=== PATIENT | female | born 1980 | race Caucasian/White ===

== ENCOUNTER → 2021-09-12 10:21 | Outpatient (BNVA) | payer OTHER, SELFPAY | PROVIDERS: PCP Nurse Practitioner Family; Visit Provider Hospitalist | DX: J47.9 Bronchiectasis, uncomplicated (principal); R91.1 Solitary pulmonary nodule; Q34.8 Other specified congenital malformations of respiratory system; F17.200 Nicotine dependence, unspecified, uncomplicated | CPT/HCPCS: 90686; 99202 ==

== ENCOUNTER 2021-09-27 06:29 | Day surgery (SDC) | payer OTHER, SELFPAY ==
[2021-09-18 14:16] VITALS: BMI 29.7
--- NOTE | 2021-09-26 10:56 | P.CONAN_ITS ---
Documented by User: Keli Johnson NP 09/26/21 10:57 HPI - Anesthesia Eval Consult details Narrative: 40yo F for Bronchoscopy Fiberoptic PMFSH Active Problems Active Problems: All Active Problems (Updated 09/18/21 @ 14:01 by Keira Castañeda RN) Tobacco dependence (Acute) Pulmonary nodule (Acute) Bronchiectasis (Acute) Primary ciliary dyskinesia (Acute) Past Medical History Medical History ADD (attention deficit disorder) Anxiety and depression Bronchiectasis IBS (irritable bowel syndrome) Migraines Primary ciliary dyskinesia Pulmonary nodule Sciatica Tobacco dependence Surgical History Surgical History History of bronchoscopy History of tubal ligation Hx of colonoscopy Social History Social History Are you a primary personal care attendant to a significant other at home: No Do you presently have visiting nurse or other home services: No Patient Tobacco Use Status: Current everyday Tobacco user Tobacco use type: Cigarette Cigarette Packs Per Day: 1 Cigarettes Per Day: 20.0 Years Smoked: 5 Smoked in Last 30 Days: Yes Patient Interested in Nicotine Replacement: No Use of substances other than those prescribed or required for medical reasons: Yes Substance Use Frequency: Occasionally Have you been hit, kicked, punched, or otherwise hurt by someone within the past year? If so, by whom?: No Are you DNR?: No Advance Directives: No Advance Directives Information Provided: No Advance Directives on File: No Recently lost weight without trying: No Eating poorly because of decreased appetite: No Nutrition Risks: No Nutritional Risk Patient : No Meds Allergies Allergy/AdvReac Type Severity Reaction Status Date / Time Sulfa (Sulfonamide Allergy Severe Hives/Swell Verified 09/18/21 13:51 Antibiotics) ing amoxicillin Allergy Hives, Verified 09/18/21 14:02 Swelling levofloxacin [From Levaquin] Allergy Rash Verified 09/18/21 14:02 nitrofurantoin Allergy Rash Verified 09/18/21 14:02 [From Macrobid] Home Medications Medication Instructions Recorded Confirmed Last Taken Type albuterol sulfate 90 mcg/actuation 0 mcg INHALATION 09/12/21 Unknown History aerosol inhaler (ProAir HFA) bupropion HCl 150 mg tablet,12 hr 150 mg PO DAILY 09/12/21 09/18/21 Unknown History sustained-release dextroamphetamine-amphetamine ER cap PO 09/12/21 Unknown History 20 mg 24hr capsule,extend release (Adderall XR) lamotrigine 200 mg tablet 200 mg PO BID 09/12/21 09/18/21 Unknown History lorazepam 1 mg tablet 1 mg PO BID PRN 09/12/21 09/18/21 Unknown History rizatriptan 10 mg tablet 10 mg PO BEDTIME 09/12/21 09/18/21 Unknown History tranexamic acid 650 mg tablet 1,300 mg PO TID 09/12/21 09/18/21 Unknown History zolpidem 10 mg tablet 10 mg PO BEDTIME PRN 09/12/21 09/18/21 Unknown History Exam Exam Date and Time: September 26, 2021 1056 Height,Weight and Vital Signs: Height 5 ft 4 in Weight 78.471 kg Assessment and Plan Assessment Anesthesia Assessment: Chart Reviewed Documented by User: Paty Soria MD 09/27/21 07:50 [facility] Past Medical History Medical History ADD (attention deficit disorder) Anxiety and depression Bronchiectasis IBS (irritable bowel syndrome) Migraines Primary ciliary dyskinesia Pulmonary nodule Sciatica Tobacco dependence Surgical History Surgical History History of bronchoscopy History of tubal ligation Hx of colonoscopy History of Problems with Anesthesia: No Social History Social History Are you a primary personal care attendant to a significant other at home: No Do you presently have visiting nurse or other home services: No Patient Tobacco Use Status: Current everyday Tobacco user Tobacco use type: Cigarette Cigarette Packs Per Day: 1 Cigarettes Per Day: 20.0 Years Smoked: 5 Smoked in Last 30 Days: Yes Patient Interested in Nicotine Replacement: No Use of substances other than those prescribed or required for medical reasons: Yes Substance Use Frequency: Occasionally Have you been hit, kicked, punched, or otherwise hurt by someone within the past year? If so, by whom?: No Are you DNR?: No Advance Directives: No Advance Directives Information Provided: No Advance Directives on File: No Recently lost weight without trying: No Eating poorly because of decreased appetite: No Nutrition Risks: No Nutritional Risk Patient : No Meds Allergies Allergy/AdvReac Type Severity Reaction Status Date / Time Sulfa (Sulfonamide Allergy Severe Hives/Swell Verified 09/18/21 13:51 Antibiotics) ing amoxicillin Allergy Hives, Verified 09/18/21 14:02 Swelling levofloxacin [From Levaquin] Allergy Rash Verified 09/18/21 14:02 nitrofurantoin Allergy Rash Verified 09/18/21 14:02 [From Macrobid] Home Medications Medication Instructions Recorded Confirmed Last Taken Type albuterol sulfate 90 mcg/actuation 0 mcg INHALATION 09/12/21 Unknown History aerosol inhaler (ProAir HFA) bupropion HCl 150 mg tablet,12 hr 150 mg PO DAILY 09/12/21 09/18/21 Unknown History sustained-release dextroamphetamine-amphetamine ER cap PO 09/12/21 Unknown History 20 mg 24hr capsule,extend release (Adderall XR) lamotrigine 200 mg tablet 200 mg PO BID 09/12/21 09/18/21 Unknown History lorazepam 1 mg tablet 1 mg PO BID PRN 09/12/21 09/18/21 Unknown History rizatriptan 10 mg tablet 10 mg PO BEDTIME 09/12/21 09/18/21 Unknown History tranexamic acid 650 mg tablet 1,300 mg PO TID 09/12/21 09/18/21 Unknown History zolpidem 10 mg tablet 10 mg PO BEDTIME PRN 09/12/21 09/18/21 Unknown History Exam Airway Mallampati Class: II TM Dist: >3cm Neck ROM: Full Loose/Missing/Broken Teeth: No Heart: RRR Lungs: CTA Assessment and Plan Assessment Anesthesia Assessment: Anesthesia Plan Discussed Final Anesthetic Review History of Problems with Anesthesia: No NPO: Yes ASA Class: II Final Preanesthetic Review: Meds/Allgs Chart Reviewed, Consent Obtained/Reviewed and Anes Risks/Benef Reviewed Patient Risk: Low Procedure Risk: Intermediate Anesthetic Plan Anesthetic Plan: GA Disposition: Standard PACU
[2021-09-27 07:04] VITALS: BP 109/64; PULSE 87; RESP 16; TEMP 36.3; O2SAT 97
[2021-09-27] MEDS: Lactated Ringers 1,000 ML 100 ML IVCONT (07:05)
--- NOTE | 2021-09-27 08:06 | MHC.SHP ---
Pre-Procedural Eval Section A Date of Service: 09/27/21 The patient is an INPATIENT: No Changes since office visit: Yes Patient answered all questions; No Cold of Flu in the past 2 weeks, No New Medical Problems and No Changes in Medication The History & Physical has been completed within 30 days and I have reviewed it.: Yes Section B Chief Complaint: bronchiectasis Allergies: Allergies Allergy/AdvReac Type Severity Reaction Status Date / Time Sulfa (Sulfonamide Allergy Severe Hives/Swell Verified 09/18/21 13:51 Antibiotics) ing amoxicillin Allergy Hives, Verified 09/18/21 14:02 Swelling levofloxacin [From Levaquin] Allergy Rash Verified 09/18/21 14:02 nitrofurantoin Allergy Rash Verified 09/18/21 14:02 [From Macrobid] Plan I have reviewed the history and physical and performed a pertinent physical examination on my patient. No changes have occurred unless specified.
[2021-09-27 08:49] VITALS: BP 116/69; PULSE 105; RESP 16; TEMP 36.4; O2SAT 100
[2021-09-27 08:54] VITALS: BP 107/69; PULSE 92; RESP 16; O2SAT 100
[2021-09-27 08:59] VITALS: BP 109/70; PULSE 87; RESP 16; O2SAT 100
[2021-09-27 09:04] VITALS: BP 115/73; PULSE 87; RESP 16; O2SAT 100
[2021-09-27 09:19] VITALS: BP 114/75; PULSE 86; RESP 16; TEMP 36.4; O2SAT 100
--- NOTE | 2021-09-27 10:40 | PM.OP ---
Brief Operative Note Date of Service: 09/27/21 Pre-op diagnosis: bronchiectasis Post-op diagnosis: other (Rul polypoid lesions ) Procedure: bronchoscopy Implants: Surgeon: Jude Wiseman MD Anesthesia: GLMA Was an Associate Doctor used for this Procedure?: No Estimated blood loss (mL): 0 Pathology: other (Rul biipsies) Condition: stable Disposition: same day
--- NOTE | 2021-09-27 18:35 | OP_ITS ---
SURGEON: Jude Wiseman MD PREOPERATIVE DIAGNOSIS: Bronchiectasis. POSTOPERATIVE DIAGNOSIS: PROCEDURE PERFORMED: Bronchoscopy with therapeutic cleaning, bilateral lung washings and brushings along with endobronchial biopsy. ESTIMATED BLOOD LOSS: COMPLICATIONS: ANESTHESIA: ASSISTANTS: SPECIMENS: POSTOPERATIVE DIAGNOSES: Bronchiectasis in addition to right upper lobe polypoid lesion. DESCRIPTION OF PROCEDURE: After the patient was adequately sedated, LMA in place, flexible digital bronchoscope was inserted over the LMA to the level of the larynx. The vocal cords appeared to be erythematous. The whole larynx actually was erythematous without any lesions. After instilling additional lidocaine, the bronchoscope was then passed the vocal cords to the level of the trachea. The trachea appeared to be completely patent without any evidence of any malacia or stenosis. No significant secretions in the trachea. After given additional lidocaine, the bronchoscope was then navigated to the entire tracheobronchial tree that was examined up to the subsegmental level. The patient did have moderate to severe mucoid secretions with mucus plugging throughout. The mucus was tenacious and difficult to suction. Using saline flushes, we were able to flush out the plaques out of both the right and the left lung. After clearing all the mucus, the endobronchial mucosa was assessed. The patient did have evidence of diverticula, likely consistent with smoking. In addition to that, she had a small little polypoid lesion in the right upper lobe. Please refer to the pictures in the brief operative summary. They appear to be slightly raised. Using brushings, right lower lobe brushings introduced into the purulent secretions noted in the right lower lobe. Specimens sent for microbiology. Next, bilateral lung washings collected for both cytology and microbiology. Next, using forceps, endobronchial biopsies were collected from the right upper lobe polypoid lesion. Specimen sent on formalin to the pathologist to evaluate. The patient had no significant bleeding at the end of the procedure. Had good hemostasis. No epinephrine required. The bronchoscope was then removed. The total endoscopic time approximately about 50 minutes. The patient tolerated the procedure well. Vital signs were stable throughout the procedure. INTERPRETATION: 1. Successful therapeutic cleaning of the airways, [id number]. 2. Bilateral lung washings. 3. Right lower lobe microscopic brushings 4. Forcep endobronchial biopsy of the right upper lobe lesion. Jude Wiseman MD MR/MODL / [id number] RAMIREZ
== END 2021-09-27 10:20 | disposition home or self-care (01) ==
PROVIDERS: PCP Nurse Practitioner Family; Visit Provider Hospitalist
PROC: 0BJ08ZZ Inspection of Tracheobronchial Tree, Via Natural or Artificial Opening Endoscopic (ICD-10-PCS; CPT 31622; principal; 2021-09-27 08:00)
DX: J47.9 Bronchiectasis, uncomplicated (principal); D14.31 Benign neoplasm of right bronchus and lung; J98.09 Other diseases of bronchus, not elsewhere classified; R91.1 Solitary pulmonary nodule; Q34.8 Other specified congenital malformations of respiratory system; F17.210 Nicotine dependence, cigarettes, uncomplicated; Z88.2 Allergy status to sulfonamides
CPT/HCPCS: 31645; 31625; 31623; 87071; 87102; 87107; 87116; 87205; 88305; 88341; 88342; J0171; J2250; J3010

== ENCOUNTER → 2021-10-04 14:42 | Outpatient (BNVA) | payer OTHER, SELFPAY | PROVIDERS: PCP Nurse Practitioner Family; Visit Provider Hospitalist | DX: J47.9 Bronchiectasis, uncomplicated (principal); R91.1 Solitary pulmonary nodule; Q34.8 Other specified congenital malformations of respiratory system; D49.1 Neoplasm of unspecified behavior of respiratory system; F17.210 Nicotine dependence, cigarettes, uncomplicated | CPT/HCPCS: 99212 ==

== ENCOUNTER → 2021-11-02 11:09 | Outpatient (BNVA) | payer OTHER, SELFPAY | PROVIDERS: PCP Nurse Practitioner Family; Visit Provider Surgery | DX: D21.9 Benign neoplasm of connective and other soft tissue, unspecified (principal); D49.1 Neoplasm of unspecified behavior of respiratory system; R91.1 Solitary pulmonary nodule; Z79.899 Other long term (current) drug therapy; Z87.891 Personal history of nicotine dependence | CPT/HCPCS: 99212 ==

== ENCOUNTER 2023-10-07 10:25 | Outpatient (AMB) | payer OTHER, SELFPAY ==
--- NOTE | 2023-10-07 10:39 | A.OFFVIS_ITS ---
Intake Vital Signs 10/07/23 10:40 Height 5 ft 3 in Weight 180 lb BMI 31.9 Pulse 78 Pulse Source Pulse Oximeter Pulse Oximetry (%) 99 Oxygen Delivery Method Room Air Intake Visit Reasons: pulm nodule Allergies Sulfa (Sulfonamide Antibiotics) Allergy (Severe, Verified 10/07/23 10:42) Hives/Swelling amoxicillin Allergy (Verified 10/07/23 10:42) Hives, Swelling levofloxacin [From Levaquin] Allergy (Verified 10/07/23 10:42) Rash nitrofurantoin [From Macrobid] Allergy (Verified 10/07/23 10:42) Rash HPI HPI Comments History of Present Illness Details The patient is a 42-year-old woman with a known history of chronic upper and lower respiratory infections. Patient was further evaluated in [place] and was given a diagnosis of primary ciliary dyskinesia. At this point I do not have any biopsy results or genetic testing given the diagnosis. The patient does not have any evidence of any dextrocardia. The patient was evaluated at [facility]. There she did undergo a bronchoscopy back in 2013. She had extensive mucus plugging. Her cultures were all negative. Biopsies were consistent with acute on chronic inflammatory changes of the bronchi. In addition to that her cytology was consistent with abundant macrophages. Unfortunate patient is actively smoking. She is trying to cut down. I did review her CT scan of the chest that she had back in 2016 demonstrating some bronchiectatic changes at the bases. In addition to that she did have a pulmonary nodule 3-4 mm in size in the right middle lobe. The patient has not had a repeat CT scan to follow this nodule. The patient has had chest x-rays without any significant disease. At this point based on the patien t's worsening respiratory symptoms and chest congestion the best in to be to repeat her bronchoscopy for both therapeutic and diagnostic purposes. We did talk about the importance of tobacco cessation. The patient is currently working with a psychologist. Therefore hold off on Chantix because of the risk of worsening depression. 10/04/2021 the patient is here for a pulmonary follow-up visit. She recently underwent bronchoscopy. She did undergo therapeutic cleaning. She did have significant purulent secretions bilaterally. Her cultures were positive for both filamentous fungus and also strep viridans. Will treat the strep. His this time. The filamentous fungus is still trying to identify. If indeed this is Aspergillus will treated with voriconazole. The patient also had a small polypoid lesion in the right upper lobe area. 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 at this point this finding is concerning as he may require resection. The patient has not had a formal CT scan to assess the size of this tumor. Depending on the size will discuss further interventions. I have discussed the case already with thoracic surgery. She also has established pulmonary care in [place] in view of her primary ciliary dyskinesia. A since we last spoke the patient quit smoking altogether. This is a very positive gain that she has done. I am hopeful that she can continue with her smoking cessation. The therapeutic bronchoscopy was partially helpful. She did have some discomfort to the left lung. And again she is accumulating mucus again this is partly due to the untreated organisms in her lungs. The patient is also concerned for blood dyscrasias. Apparently her father of a blood dyscrasia after 8 days of being diagnosed. 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 We will further evaluate her CT scan for any abnormal lymph nodes but at this point it is very unlikely. 10/07/2023 the patient is here for a pul monary follow-up visit. The patient overall has been fairly well from a respiratory status. She quit smoking 2 weeks ago which is happy about. Hopefully she continued to state from without decision. She is still coughing still has some chest congestion wheezing at times. [id number] severity. She is also concerned about her immun ological status. The patient has had a abnormal flow cytometry laboratory that he has she had from her supervisor vacuum metalizing. 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 Although her IgG levels are reassuring. She will follow-up with me allergy at this time. She can consider Hematology evaluation as well. We again reviewed her last CT scan of the chest that she had back in September 2022. No evidence of any gross endobronchial disease to suggest any recurrence of the granular tumor of her bronchus. The patient does have small pulmonary nodules. She will need a repeat CT scan to further address the endobronchial lesion and also her pulmonary nodules. The patient also has been having some increasing daytime drowsiness. Her Philmont score is elevated 09/19. Therefore, she should have a sleep study at this time. She has tried multiple medications such as stimulants but still not effective. Therefore, will follow-up with her after her CT scan and sleep study. On examination she does have significant rhonchi. She is willing to start Symbicort at this time. She may need additional therapy she can always call if she has not responded to the Symbicort. [facility] Medical History (Updated 10/07/23 @ 12:36 by Jude Wiseman MD) Has daytime drowsiness Lung tumor Sciatica Migraines IBS (irritable bowel syndrome) Anxiety and depression ADD (attention deficit disorder) Tobacco dependence Pulmonary nodule Bronchiectasis Primary ciliary dyskinesia Surgical History History of tubal ligation Hx of colonoscopy History of bronchoscopy Social History Are you a primary manager care management to a significant other at home: No Do you presently have visiting nurse or other home services: No Patient Tobacco Use Status: Current everyday Tobacco user Tobacco use type: Cigarette Cigarette Packs Per Day: 1 Cigarettes Per Day: 20.0 Years Smoked: 5 Review of Systems Const Reports headache(s) and Denies night sweats ENT Denies change in voice, Reports headache(s), Denies lip swelling, Denies mouth pain, Reports nasal congestion, Reports nasal discharge and Denies tongue swelling Card Denies chest pain and Reports dyspnea on exertion Resp Reports chest congestion, Reports cough and Reports dyspnea on exertion GI Denies abdominal pain Musc Denies no additional complaints Neuro Denies Neuro-related abnormal movements and Reports headache(s) Psych Denies no additional complaints Todd/Lymph Denies easy bleeding and Denies lymphadenopathy Aller/Immun Denies lip swelling and Denies tongue swelling Physical Exam Vital Signs: Last Vital Signs Pulse 78 10/07/23 10:40 Pulse Ox 99 10/07/23 10:40 Oxygen Delivery Method Room Air 10/07/23 10:40 BMI result Body Mass Index 31.9 Const General: alert Neck Neck: Yes normal visual inspection, Yes full ROM and Yes no lymphadenopathy Chest Chest palpation & inspection: normal inspection of the chest Resp Effort & Inspection: prolonged expiratory phase Auscultation: rhonchi and diminished lung sounds Cardio Rate: regular rate Rhythm: regular rhythm Heart sounds: S1 normal heart sound present and S2 normal heart sound present GI Palpation (GI): Soft to palpation and nontender Auscultation: normal bowel sounds Skin General skin exam: rashes and/or lesions noted Assessment & Plan Assessment & Plan (1) Primary ciliary dyskinesia: Code(s): Q34.8 - Other specified congenital malformations of respiratory system (2) Bronchiectasis: Code(s): J47.9 - Bronchiectasis, uncomplicated Qualifiers: Bronchiectasis type: uncomplicated Qualified Code(s): J47.9 - Bronchiectasis, uncomplicated (3) Pulmonary nodule: Code(s): R91.1 - Solitary pulmonary nodule Plan: 3-[address] [place] [address] chest [place] [facility] [place]4) Tobacco dependence: Code(s): F17.200 - Nicotine dependence, unspecified, uncomplicated (5) Lung tumor: Code(s): D49.1 - Neoplasm of unspecified behavior of respiratory system (6) Has daytime drowsiness: Comment: NEREIDA 09/19 Code(s): R40.0 - Somnolence Plan Start Symbicort BID CT chest home PSG Tobacco cessation ALEN as needed F/U 2-3 months Orders: Orders CT chest wo IV con Today D49.1 - Neoplasm of unspecified behavior of respiratory system, R91.1 - Solitary pulmonary nodule RT home sleep study Today R40.0 - Somnolence Medications: New budesonide-formoterol 160-4.5 mcg/actuation (Symbicort) 2 puffs inhalation BID 30 days 10.2 grams 11RF J44.89 - Other specified chronic obstructive pulmonary disease Quality Reporting (2019) Adult ([facility] 138/12/18/68) Smoking risk assessment performed?: Yes Patient Tobacco Use Status: Current everyday Tobacco user Coding Level of Care Code Est Pt Level 4 (95497) Diagnoses Primary ciliary dyskinesia Q34.8 Bronchiectasis without complication J47.9 Bronchiectasis type: uncomplicated Pulmonary nodule R91.1 Tobacco dependence F17.200 Lung tumor D49.1 Has daytime drowsiness R40.0 Time Spent (min) 18
[2023-10-07 10:40] VITALS: PULSE 78; O2SAT 99; BMI 31.9
== END 2023-10-07 11:16 | disposition home or self-care (01) ==
PROVIDERS: PCP Nurse Practitioner Family; Visit Provider Hospitalist
DX: Q34.8 Other specified congenital malformations of respiratory system (principal); J47.9 Bronchiectasis, uncomplicated; R91.1 Solitary pulmonary nodule; F17.200 Nicotine dependence, unspecified, uncomplicated; D49.1 Neoplasm of unspecified behavior of respiratory system; R40.0 Somnolence
CPT/HCPCS: 99214

== ENCOUNTER → 2023-10-07 10:25 | Outpatient (BNVA) | payer OTHER, SELFPAY | PROVIDERS: PCP Nurse Practitioner Family; Visit Provider Hospitalist | DX: J47.9 Bronchiectasis, uncomplicated (principal); R91.1 Solitary pulmonary nodule; Q34.8 Other specified congenital malformations of respiratory system; D49.1 Neoplasm of unspecified behavior of respiratory system; R40.0 Somnolence; F17.210 Nicotine dependence, cigarettes, uncomplicated | CPT/HCPCS: 99212 ==

== ENCOUNTER 2024-11-24 11:26 | Outpatient (AMB) | payer OTHER, SELFPAY ==
--- NOTE | 2024-11-24 11:30 | A.OFFVIS_ITS ---
Vital Signs 11/24/24 11:31 Height 5 ft 3 in Weight 133 lb 6.075 oz BMI 23.6 BP 98/60 Blood Pressure Location Lt brachial Position Sitting Pulse 67 Pulse Source Pulse Oximeter Pulse Oximetry (%) 100 Oxygen Delivery Method Room Air Intake Visit Reasons: Pulmonary Nodule Allergies Sulfa (Sulfonamide Antibiotics) Allergy (Severe, Verified 11/24/24 11:34) Hives/Swelling amoxicillin Allergy (Verified 11/24/24 11:34) Hives, Swelling levofloxacin [From Levaquin] Allergy (Verified 11/24/24 11:34) Rash nitrofurantoin [From Macrobid] Allergy (Verified 11/24/24 11:34) Rash HPI Comments Details: The patient is a 44-year-old woman with a known history of chronic upper and lower respiratory infections. Patient was further evaluated in [place] and was given a diagnosis of primary ciliary dyskinesia. At this point I do not have any biopsy results or genetic testing given the diagnosis. The patient does not have any evidence of any dextrocardia. The patient was evaluated at [facility]. There she did undergo a bronchoscopy back in 2013. She had extensive mucus plugging. Her cultures were all negative. Biopsies were consistent with acute on chronic inflammatory changes of the bronchi. In addition to that her cytology was consistent with abundant macrophages. Unfortunate patient is actively smoking. She is trying to cut down. I did review her CT scan of the chest that she had back in 2016 demonstrating some bronchiectatic changes at the bases. In addition to that she did have a pulmonary nodule 3-4 mm in size in the right middle lobe. The patient has not had a repeat CT scan to follow this nodule. The patient has had chest x-rays without any significant disease. At this point based on the patient's worsening respiratory symptoms and chest congestion the best in to be to repeat her bronchoscopy for both therapeutic and diagnostic purposes. We did talk about the importance of tobacco cessation. The patient is currently working with a psychologist. Therefore hold off on Chantix because of the risk of worsening depression. 10/04/2021 the patient is here for a pulmonary follow-up visit. She recently underwent bronchoscopy. She did undergo therapeutic cleaning. She did have significant purulent secretions bilaterally. Her cultures were positive for both filamentous fungus and also strep viridans. Will treat the strep. His this time. The filamentous fungus is still trying to identify. If indeed this is Aspergillus will treated with voriconazole. The patient also had a small polypoid lesion in the right upper lobe area. 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 at this point this finding is concerning as he may require resection. The patient has not had a formal CT scan to assess the size of this tumor. Depending on the size will discuss further interventions. I have discussed the case already with thoracic surgery. She also has established pulmonary care in [place] in view of her primary ciliary dyskinesia. A since we last spoke the patient quit smoking altogether. This is a very positive gain that she has done. I am hopeful that she can continue with her smoking cessation. The therapeutic bronchoscopy was partially helpful. She did have some discomfort to the left lung. And again she is accumulating mucus again this is partly due to the untreated organisms in her lungs. The patient is also concerned for blood dyscrasias. Apparently her father of a blood dyscrasia after 8 days of being diagnosed. She was evaluated by her blue line trimmer and she was told that she had abnormal T cells. We will further evaluate her CT scan for any abnormal lymph nodes but at this point it is very unlikely. 10/07/2023 the patient is here for a pulmonary follow-up visit. The patient overall has been fairly well from a respiratory status. She quit smoking 2 wee ks ago which is happy about. Hopefully she continued to state from without decision. She is still coughing still has some chest congestion wheezing at times. Whxa-lj-paeocmtz severity. She is also concerned about her immunological status. The patient has had a abnormal flow cytometry laboratory that he has she had from her blue line trimmer. 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 Although her IgG levels are reassuring. She will follow- up with me allergy at this time. She can consider Hematology evaluation as well. We again reviewed her last CT scan of the chest that she had back in September 2022. No evidence of any gross endobronchial disease to suggest any recurrence of the granular tumor of her bronchus. The patient does have small pulmonary nodules. She will need a repeat CT scan to further address the endobronchial lesion and also her pulmonary nodules. The patient also has been having some increasing daytime drowsiness. Her Hydes score is elevated 09/19. Therefore, she should have a sleep study at this time. She has tried multiple medications such as stimulants but still not effective. Therefore, will follow- up with her after her CT scan and sleep study. On examination she does have significant rhonchi. She is willing to start Symbicort at this time. She may need additional therapy she can always call if she has not responded to the Symbicort. 11/24/2024 the patient is here for a pulmonary follow-up visit. Overall she is doing very well. She has been actively working on weight management. She has lost a good amount of weight and she feels very healthy. Her reflux symptoms have improved. She does have some respiratory complaints. She feels sometimes she gets chest congestion and feels like it hard to breathe. Fjau-iq-pljvjfgn s everity. It is intermittent. Meantime we did talk about her finding of the bronchial benign tumor growth. Although is benign does tumor growth can increasing size. It was removed completely though based on the biopsy pictures. The patient will should have a repeat bronchoscopy to just reassess the area to make sure there is no recurrence of the tumor growth. Her last CT scan was back in 2023 I personally reviewed with her. She has multiple pulmonary nodules which appeared to be stable. The been stable for a couple years so no additional imaging studies warranted, unless, there is any evidence of any recurrence of the tumor growth. She is agreeable to a bronchoscopy. She will call when she is ready to have it. Otherwise we can following as needed basis. ON LICENSE OF [facility] Medical History (Updated 10/07/23 @ 12:36 by Jude Wiseman MD) Has daytime drowsiness Lung tumor Sciatica Migraines IBS (irritable bowel syndrome) Anxiety and depression ADD (attention deficit disorder) Tobacco dependence Pulmonary nodule Bronchiectasis Primary ciliary dyskinesia Surgical History History of tubal ligation Hx of colonoscopy History of bronchoscopy Social History (Updated 11/24/24 @ 11:34 by Kelle Tijerina CMA) Are you a primary child care group leader to a significant other at home: No Do you presently have visiting nurse or other home services: No Patient Tobacco Use Status: Former Tobacco user Tobacco use type: Cigarette Cigarette Packs Per Day: 1 Cigarettes Per Day: 20.0 Years Smoked: 5 Review of Systems Const Reports headache(s), Denies night sweats and Reports weight loss ENT Denies change in voice, Reports headache(s), Denies lip swelling, Denies mouth p ain, Reports nasal congestion, Reports nasal discharge and Denies tongue swelling Card Denies chest pain and Denies dyspnea on exertion Resp Reports chest congestion, Reports cough and Denies dyspnea on exertion GI Denies abdominal pain Musc Denies no additional complaints Neuro Denies Neuro-related abnormal movements and Reports headache(s) Psych Denies no additional complaints Todd/Lymph Denies easy bleeding and Denies lymphadenopathy Aller/Immun Denies lip swelling and Denies tongue swelling Physical Exam Vital Signs: Last Vital Signs Pulse 67 11/24/24 11:31 BP 98/60 11/24/24 11:31 Pulse Ox 100 11/24/24 11:31 Oxygen Delivery Method Room Air 11/24/24 11:31 BMI result Body Mass Index 23.6 Const General: alert Neck Neck: Yes normal visual inspection, Yes full ROM and Yes no lymphadenopathy Chest Chest palpation & inspection: normal inspection of the chest Resp Auscultation: clear to auscultation bilaterally and no rhonchi Cardio Rate: regular rate Rhythm: regular rhythm Heart sounds: S1 normal heart sound present and S2 normal heart sound present GI Palpation (GI): Soft to palpation and nontender Auscultation: normal bowel sounds Skin General skin exam: rashes and/or lesions noted Quality Reporting (2019) Adult ([facility] 13812/18/68) Smoking risk assessment performed?: Yes Patient Tobacco Use Status: Current everyday Tobacco user Assessment & Plan Assessment & Plan (1) Primary ciliary dyskinesia: Code(s): Q34.8 - Other specified congenital malformations of respiratory system Category: Medical (2) Bronchiectasis: Code(s): J47.9 - Bronchiectasis, uncomplicated Category: Medical Qualifiers: Bronchiectasis type: uncomplicated Qualified Code(s): J47.9 - Bronchiectasis, uncomplicated (3) Pulmonary nodule: Code(s): R91.1 - Solitary pulmonary nodule Category: Medical Plan: 3-[address] RML on CT chest 2016 at [facility] [place] (4) Tobacco dependence: Code(s): F17.200 - Nicotine dependence, unspecified, uncomplicated Category: Medical (5) Lung tumor: Code(s): D49.1 - Neoplasm of unspecified behavior of respiratory system Category: Medical Plan Bronchoscopy to assess endobronchial tumor and for therapeutic cleaning of the airways ALEN as needed CT chest with stable nodules for 2 years, no additional imaginf requiered F/U 1 yr or as needed Coding Level of Care Code Est Pt Level 4 (00904) Diagnoses Primary ciliary dyskinesia Q34.8 Bronchiectasis without complication J47.9 Bronchiectasis type: uncomplicated Pulmonary nodule R91.1 Tobacco dependence F17.200 Lung tumor D49.1 Time Spent (min) 17
[2024-11-24 11:31] VITALS: BP 98/60; PULSE 67; O2SAT 100; BMI 23.6
--- OUTSIDE RECORDS SUMMARY | 2024-11-24 13:52 | XMS_ITS | Patient Health Record ---
Author Organization [employer] [facility] Address [address] [place] [address] Care Team Providers Care Watch Repair Person Name Role Phone ZACH GUTHRIE Primary Care Provider Rebecca Monsalve Unavailable [phone] Allergies Allergen (clinical drug ingredient) Drug/Non Drug Allergy documented on EMR Reaction Allergy Type Onset Date Status Substance with sulfonamide structure and antibacterial mechanism of action (substance) SULFA (uncoded) Skin Rash Allergy Active Reason For Referral No Information Medications Medication SIG (Take, Route, Frequency, Duration) Notes Start Date End Date Status Vitamin 27-0.8 MG 1 Orally DAILY for 90 days 03/01/2016 Active clonazePAM 2 MG 1 tablet Orally hs Active LORazepam 0.5MG 1 ORAL three times d aily for -3 [facility] 02/03/2013 Active Adderall 15MG 1 ORAL DAILY for -3 [facility] 01/30/2012 Active LaMICtal 200MG 1 ORAL twice daily f or -3 [facility] 01/30/2012 Active Modicon (28) 0.5-35 MG-MCG 1 tablet Orally Once a day for 30 day(s) 12/27/2014 Not-Taking Modicon (28) 0.5-35 MG-MCG 1 tablet Orally Once a day for 365 days 03/06/2015 Not-Taking Phenergan 12.5 MG 1 suppository as nee ded Rectal every 6 hrs NEEDED for 30 day(s) 03/04/2016 Active Problems Problem Type SNOMED Code ICD Code Onset Dates Problem Status W/U Status Risk Notes Problem Depressive disorder (49926082) Depressive disorder, not elsewhere classified (311) Active confirmed Problem Migraine (disorder) (77144558) Migraine, unspecified without mention of intractable migraine without mention of status migrainosus (346.90) Active confirmed Problem Bronchiolectasis (66902596) Bronchiectasis without acute exacerbation (494.0) Active confirmed Problem Excessive and frequent menstruation (154514896) Excessive or frequent menstruation (626.2) Active confirmed Diag Plan Of Treatment Pending Test Test Name Order Date ONE SWAB 06/19/2015 ANTI-HEPATITIS C 06/19/2015 HEP. B SURF. AG 06/19/2015 HIV 1/HIV 2 AB 06/19/2015 HSV 2 IGG AB 12/21/2015 RPR WITH REFLEX TESTING 06/19/2015 URINE CHLAMYDIA GC AMP PROBE 12/21/2015 Insurance Providers Payer Name Payer Address Payer Phone Subscriber Number Group Number Insured Name Patient Relationship to Insured Coverage Start Date Coverage End Date [facility] [address] [place] [address] [id number] ROSARIO DIAZ Self - patient is the insured Medical (General) History Medical History History ICD Code Primary Cilliary Dyskinesia Excessive and frequent menstruation with regular cycle N92.0 Major depressive disorder, single episod e, unspecified F32.9 Migraine, unspecified, not intractable, without status migrainosus G43.909 Bronchiectasis, uncomplicated J47.9 Mastodynia N64.4 Stress incontinence (female) (male) N39. 3 Abdominal pain 789.0 Surgical History Surgery Date(Month/Year) D+C Hospitalization History Reason Date(Month/Year) Child
== END 2024-11-24 16:37 | disposition home or self-care (01) ==
PROVIDERS: PCP Nurse Practitioner Family; Visit Provider Hospitalist
DX: Q34.8 Other specified congenital malformations of respiratory system (principal); J47.9 Bronchiectasis, uncomplicated; R91.1 Solitary pulmonary nodule; F17.200 Nicotine dependence, unspecified, uncomplicated; D49.1 Neoplasm of unspecified behavior of respiratory system
CPT/HCPCS: 99214

== ENCOUNTER → 2024-11-24 11:26 | Outpatient (BNVA) | payer OTHER, SELFPAY | PROVIDERS: PCP Nurse Practitioner Family; Visit Provider Hospitalist | DX: R91.1 Solitary pulmonary nodule (principal); J47.9 Bronchiectasis, uncomplicated; D49.1 Neoplasm of unspecified behavior of respiratory system; Q34.8 Other specified congenital malformations of respiratory system; F17.210 Nicotine dependence, cigarettes, uncomplicated | CPT/HCPCS: 99212 ==

== ENCOUNTER 2025-08-19 11:16 | Day surgery (SDC) | payer OTHER, SELFPAY ==
--- OUTSIDE RECORDS SUMMARY | 2025-06-22 13:06 | XMS_ITS | Patient Health Record ---
Author Organization [employer] [facility] Address [address] [place] [address] Care Team Providers Care Weapons Officer Name Role Phone ROMEO GUTHRIEBETH Primary Care Provider Rebecca Monsalve Unavailable [phone] Allergies Allergen (clinical drug ingredient) Drug/Non Drug Allergy documented on EMR Reaction Allergy Type Onset Date Status Substance with sulfonamide structure and antibacterial mechanism of action (substance) SULFA (uncoded) Skin Rash Allergy Active Reason For Referral No Information Medications Medication SIG (Take, Route, Frequency, Duration) Notes Start Date End Date Status Vitamin 27-0.8 MG 1 Orally DAILY; Duration: 90 days 03/01/2016 Active clonazePAM 2 MG 1 tablet Orally hs Active LORazepam 0.5MG 1 ORAL three times daily; Duration: -3 [facility] 02/03/2013 Active Adderall 15MG 1 ORAL DAILY; Durati on: -3 [facility] 01/30/2012 Active LaMICtal 200MG 1 ORAL twice daily; Duration: -3 [facility] 01/30/2012 Active Modicon (28) 0.5-35 MG-MCG 1 tablet Orally Once a day; Duration: 30 day(s) 12/27/2014 Not-Farhat ing Modicon (28) 0.5-35 MG-MCG 1 tablet Orally Once a day; Duration: 365 days 03/06/2015 Not-Taki ng Phenergan 12.5 MG 1 suppository as nee ded Rectal every 6 hrs NEEDED; Duration: 30 day(s) 03/04/2016 Active Problems Problem Type SNOMED Code ICD Code Onset Dates Problem Status W/U Status Risk Notes Problem Depressive disorder (32169322) Depressive disorder, not elsewhere classified (311) Active confirmed Problem Migraine (disorder) (38088895) Migraine, unspecified without mention of intractable migraine without mention of status migrainosus (346.90) Active confirmed Problem Bronchiolectasis (11823394) Bronchiectasis without acute exacerbation (494.0) Active confirmed Problem Excessive and frequent menstruation (799705546) Excessive or frequent menstruation (626.2) Active confirmed [...] Insured Coverage Start Date Coverage End Date [facility] [address] [place] [address] [id number] ROSARIO DIAZ Self - patient is the [...]
[2025-08-17 07:44] VITALS: BMI 23.6
--- NOTE | 2025-08-17 09:12 | HO.ANESPROP2 ---
Documented by User: Keli Johnson NP 08/17/25 09:15 HPI - Anesthesia Eval Consult details Narrative: 44yo F for Bronchoscopy Fiberoptic PMFSH Active Problems Active Problems: All Active Problems Has daytime drowsiness (Acute) Granular cell tumor (Acute) Lung tumor (Acute) Tobacco dependence (Acute) Pulmonary nodule (Acute) Bronchiectasis (Acute) Primary ciliary dyskinesia (Acute) Past Medical History Medical History Has daytime drowsiness Lung tumor Sciatica Migraines IBS (irritable bowel syndrome) Anxiety and depression ADD (attention deficit disorder) Tobacco dependence Pulmonary nodule Bronchiectasis Primary ciliary dyskinesia Surgical History Surgical History History of tubal ligation Hx of colonoscopy History of bronchoscopy History of Problems with Anesthesia: No Social History Social History Are you a primary home visit field care manager to a significant other at home: No Do you presently have visiting nurse or other home services: No Patient Tobacco Use Status: Former Tobacco user Tobacco use type: Cigarette Cigarette Packs Per Day: 1 Cigarettes Per Day: 20.0 Years Smoked: 5 Meds Allergies Allergy/AdvReac Type Severity Reaction Status Date / Time Sulfa (Sulfonamide Allergy Severe Hives/Swell Verified 11/24/24 11:34 Antibiotics) ing amoxicillin Allergy Hives, Verified 11/24/24 11:34 Swelling levofloxacin (From Levaquin) Allergy Rash Verified 11/24/24 11:34 nitrofurantoin (From Allergy Rash Verified 11/24/24 11:34 Macrobid) Home Medications ?Medication ?Instructions ?Recorded ?Confirmed ?Last Taken ?Type bupropion HCl 150 mg tablet,12 hr 150 mg PO DAILY 09/12/21 08/17/25 09/27/21 History sustained-release dextroamphetamine-amphetamine ER cap PO 09/12/21 11/02/21 Unknown History 20 mg 24hr capsule,extend release (Adderall XR) lamotrigine 200 mg tablet 200 mg PO BID 09/12/21 08/17/25 Unknown History lorazepam 1 mg tablet 1 mg PO BID PRN Anxiety 09/12/21 08/17/25 Unknown History zolpidem 10 mg tablet 10 mg PO BEDTIME PRN Sleep 09/12/21 08/17/25 Unknown History nebulizers 10/07/23 Unknown History rizatriptan 10 mg tablet 10 mg PO BEDTIME PRN Headache 10/07/23 08/17/25 Unknown History albuterol sulfate 90 mcg/actuation inhalation 11/24/24 Unknown History aerosol inhaler Exam Height,Weight and Vital Signs: Height 5 ft 3 in Weight 60.328 kg Assessment and Plan Assessment Anesthesia Assessment: Chart Reviewed Final Anesthetic Review History of Problems with Anesthesia: No Documented by User: Andree Rizzo MD 08/19/25 11:00 [facility] Past Medical History Medical History Has daytime drowsiness Lung tumor Sciatica Migraines IBS (irritable bowel syndrome) Anxiety and depression ADD (attention deficit disorder) Tobacco dependence Pulmonary nodule Bronchiectasis Primary ciliary dyskinesia Family History Family history of problems with anesthesia: No Surgical History Surgical History History of tubal ligation Hx of colonoscopy History of bronchoscopy Social History Social History Are you a primary home visit field care manager to a significant other at home: No Do you presently have visiting nurse or other home services: No Patient Tobacco Use Status: Former Tobacco user Tobacco use type: Cigarette Cigarette Packs Per Day: 1 Cigarettes Per Day: 20.0 Years Smoked: 5 Meds Allergies Allergy/AdvReac Type Severity Reaction Status Date / Time Sulfa (Sulfonamide Allergy Severe Hives/Swell Verified 11/24/24 11:34 Antibiotics) ing amoxicillin Allergy Hives, Verified 11/24/24 11:34 Swelling levofloxacin (From Levaquin) Allergy Rash Verified 11/24/24 11:34 nitrofurantoin (From Allergy Rash Verified 11/24/24 11:34 Macrobid) Home Medications ?Medication ?Instructions ?Recorded ?Confirmed ?Last Taken ?Type bupropion HCl 150 mg tablet,12 hr 150 mg PO DAILY 09/12/21 08/17/25 09/27/21 History sustained-release dextroamphetamine-amphetamine ER cap PO 09/12/21 11/02/21 Unknown History 20 mg 24hr capsule,extend release (Adderall XR) lamotrigine 200 mg tablet 200 mg PO BID 09/12/21 08/17/25 Unknown History lorazepam 1 mg tablet 1 mg PO BID PRN Anxiety 09/12/21 08/17/25 Unknown History zolpidem 10 mg tablet 10 mg PO BEDTIME PRN Sleep 09/12/21 08/17/25 Unknown History nebulizers 10/07/23 Unknown History rizatriptan 10 mg tablet 10 mg PO BEDTIME PRN Headache 10/07/23 08/17/25 Unknown History albuterol sulfate 90 mcg/actuation inhalation 11/24/24 Unknown History aerosol inhaler Exam Airway Mallampati Class: II TM Dist: >3cm Neck ROM: Full Heart: rrr Lungs: cta Assessment and Plan Assessment Anesthesia Assessment: Anesthesia Plan Discussed Final Anesthetic Review Family History of Problems with Anesthesia: No NPO: Yes ASA Class: III Final Preanesthetic Review: No Changes in Pt Med Stat, Meds/Allgs Chart Reviewed, Consent Obtained/Reviewed and Anes Risks/Benef Reviewed Patient Risk: Intermediate Procedure Risk: Low Anesthetic Plan Anesthetic Plan: GA and Agree w/ Assess. and Plan Disposition: Standard PACU
--- NOTE | 2025-08-19 11:38 | P.HPSUR_ITS ---
Pre-Procedural Eval Section A - 24 Hr Update-Section A only Date of Service: 08/19/25 The patient is an INPATIENT: No The patient has been examined within 24 hours of the surgical procedure. The History & Physical has been completed within 30 days and I have reviewed it.: No Section B - Complete if H&P > 30 days Chief Complaint: Solitary pulmonary nodule Details of Present Illness: 44 y/o woman with a RUL endobronchial lesion consistent with a tumor. Here to reassess. Relevant Family History (Specify if Yes): No Relevant Social History: None Medical History: Significant History History of Previous Operations: No relevant previous surgery Allergies: Allergies Allergy/AdvReac Type Severity Reaction Status Date / Time Sulfa (Sulfonamide Allergy Severe Hives/Swell Verified 11/24/24 11:34 Antibiotics) ing amoxicillin Allergy Hives, Verified 11/24/24 11:34 Swelling levofloxacin (From Levaquin) Allergy Rash Verified 11/24/24 11:34 nitrofurantoin (From Allergy Rash Verified 11/24/24 11:34 Macrobid) Review of Systems Sugical H&P ROS: Negative: Constitution, Cardiovascular, Respiratory, Neurological, Psychiatric, Hem-Onc, Allergic/Immunologic, Gastrointestinal, Genitourinary, Musculoskeletal, Integumentary, Endocrine and Eyes/Ears/Nose/Throat Exam Surgical H&P Exam: Normal: HEENT, Normal: Heart, Normal: Lungs, Normal: Extremi ties, Normal: Abdomen, Normal: Skin and Normal: Neurological Plan Diagnosis/Plan: Unchanged (endobronachial tumor, will perform repeat bronchosopcy to reassess.) I have reviewed the history and physical and performed a pertinent physical examination on my patient. No changes have occurred unless specified. Time Spent With Patient Time: Total time managing care of this patient today ____ minutes.
[2025-08-19 12:08] VITALS: BP 120/63; PULSE 78; RESP 16; TEMP 36.9; O2SAT 100
[2025-08-19] MEDS: Lactated Ringers 1,000 ML 100 ML IVCONT (12:11)
[2025-08-19 13:55] VITALS: BP 125/70; PULSE 64; RESP 16; TEMP 36.4; O2SAT 100
[2025-08-19 14:00] VITALS: BP 115/71; PULSE 73; RESP 16; O2SAT 100
[2025-08-19 14:05] VITALS: BP 109/71; PULSE 74; RESP 18; O2SAT 100
[2025-08-19 14:10] VITALS: BP 111/63; PULSE 79; RESP 18; O2SAT 99
[2025-08-19 14:25] VITALS: BP 108/58; PULSE 79; RESP 18; TEMP 37.1; O2SAT 99
--- NOTE | 2025-08-22 07:37 | OP_ITS ---
DATE OF SERVICE: 08/19/2025 SURGEON: Jude Wiseamn MD PREOPERATIVE DIAGNOSIS: POSTOPERATIVE DIAGNOSIS: PROCEDURE PERFORMED: Therapeutic bronchoscopy with bronchial washings, brushings, and endobronchial biopsies. ESTIMATED BLOOD LOSS: COMPLICATIONS: ANESTHESIA: LMA. ASSISTANTS: SPECIMENS: PREOPERATIVE DIAGNOSES: 1. Endobronchial tumor. 2. Chronic bronchitis and bronchiectasis. POSTOPERATIVE DIAGNOSES: 1. Endobronchial tumor. 2. Chronic bronchitis and bronchiectasis. DESCRIPTION OF PROCEDURE: After the patient was adequately sedated, LMA in place, the flexible digital bronchoscope was inserted via the LMA to the level of the larynx. The larynx appeared to be inflamed, likely secondary to significant coughing. The vocal cords were indeed moving symmetrically to the midline. After instilling lidocaine, the bronchoscope was then navigated passed the vocal cord to the level of the trachea. The tracheal mucosa appeared normal. No evidence of any malacia or stenosis. After instilling additional lidocaine, the bronchoscope was then navigated to the entire tracheobronchial tree that was examined up to the subsegmental level. The patient did have some moderate degree of tenacious mucoid secretions, left lung more than right. Using bronchial washings, we were able to clear out most of the debris out of the airways. She did have significant mucous plugging throughout. A micro brush was introduced into the left lower lobe and that was sent also for addition of microscopic results. After the airways were completely cleared of all the mucous burden as much as possible. The airway survey was done again. The patient again noted to have a slightly irregular area in the right upper lobe mucosa. This area is similar where she had the endobronchial polypoid lesion before there was a glandular tumor. Now it appears to just be slightly raised with some borders that are just clear in color. Please refer to the picture. Using forceps, I was able to biopsy the area some. The area was much smaller than before, but was still slightly abnormal. Not sure if it was recurrence or just some scarring in the area where she had the biopsies before. No evidence of any active bleeding at the end of the biopsies. The bronchoscope was then removed. The total endoscopic time approximately about 17 minutes. Patient tolerated the procedure well. Vital signs were stable throughout the procedure, and she was sent to home without any complications. Jude Wiseman MD MR/MODL / [id number]
== END 2025-08-19 15:36 | disposition home or self-care (01) ==
PROVIDERS: PCP Nurse Practitioner Family; Visit Provider Hospitalist
PROC: 0BJ08ZZ Inspection of Tracheobronchial Tree, Via Natural or Artificial Opening Endoscopic (ICD-10-PCS; CPT 31622; principal; 2025-08-19 13:00)
DX: R91.1 Solitary pulmonary nodule (principal); D38.1 Neoplasm of uncertain behavior of trachea, bronchus and lung; J47.9 Bronchiectasis, uncomplicated; J42 Unspecified chronic bronchitis; Q34.8 Other specified congenital malformations of respiratory system; Z88.1 Allergy status to other antibiotic agents; Z88.2 Allergy status to sulfonamides; Z87.891 Personal history of nicotine dependence
CPT/HCPCS: 31625; 31623; 87070; 87102; 87116; 87205; 87206; 88112; 88305; J0131; J0165; J1100; J2003; J2371; J2405; J2704